=== PATIENT | male | born 1995 ===

== ENCOUNTER 2020-03-31 20:10 | Emergency (ER) | payer SELFPAY ==
[~2020-03-31] VITALS: Ht 188 cm; Wt 77.3 kg
[2020-03-31 20:19] VITALS: Ht 188 cm; Wt 77.3 kg
[2020-03-31 20:35] LABS: BILIRUBIN NEGATIVE (NEGATIVE); GLUCOSE NEGATIVE (NEGATIVE); KETONE NEGATIVE (NEGATIVE); NITRITE NEGATIVE (NEGATIVE); SPECIFIC GRAVITY 1.005 (1.005-1.020); UROBILINOGEN NORMAL (NORMAL)
[2020-03-31 20:37] LABS: BASOPHILS 0.2 % (0-2); EOSINOPHILS 1.2 % (0-7); HEMATOCRIT 38.2 % (42.0-54.0); HEMOGLOBIN 12.2 g/dL (13.5-17.5); LYMPHOCYTES 35.1 % (15-50); MCH 23.9 pg (26.0-34.0); MCHC 31.9 g/dL (31.0-37.0); MCV 74.8 fL (80.0-100.0); NEUTROPHILS 57.5 % (40-80); PLATELET COUNT 249 10x3/uL (130-400); RBC 5.11 10x6/uL (4.20-6.10); RDW 15.8 % (11.5-14.5); WBC 5.8 10x3/uL (4.8-10.8)
[2020-03-31 20:48] LABS: ANION GAP 9.1 mmol/L (8-16); CALCIUM 8.9 mg/dL (8.5-10.1); CARBON DIOXIDE 28.7 mmol/L (21.0-32.0); CREATININE - SERUM 1.5 mg/dL (0.6-1.3); POTASSIUM - SERUM 3.8 mmol/L (3.5-5.1)
[2020-03-31 20:54] LABS: ALBUMIN 4.1 g/dL (3.4-5.0); BILIRUBIN - TOTAL 0.49 mg/dL (0.2-1.3); PROTEIN - SERUM 7.7 g/dL (6.4-8.2)
[2020-03-31] MEDS ORDERED: ZOFRAN ODT4 MG/UDTAB PO (21:07)
[2020-03-31 21:30] VITALS: BP 136/76
== END 2020-03-31 21:30 | disposition home or self-care (01) ==
LOC: D.ER 20:10
PROVIDERS: Emergency Medicine
DX: R11.2 Nausea with vomiting, unspecified (principal); R53.1 Weakness; R55 Syncope and collapse